=== PATIENT | male | born 1960 ===

== ENCOUNTER 2020-01-03 10:13 | Outpatient (RCR) | payer OTHER ==
[~2020-01-03 10:13] MED LIST: LIDOCAINE VISC 2% SOLN 15 ML UDC ONE
[2020-01-03] MEDS ORDERED: COLLAGENASE OINTMENT 30 GM TUBE ONE (16:45)
== END 2020-01-11 ==
LOC: WCC 10:13
PROVIDERS: ATTEND Internal Medicine Infectious Disease
DX: E11.622 Type 2 diabetes mellitus with other skin ulcer (principal); L89.892 Pressure ulcer of other site, stage 2; S81.802A Unspecified open wound, left lower leg, initial encounter; R60.0 Localized edema; I73.89 Other specified peripheral vascular diseases; I10 Essential (primary) hypertension; G99.0 Autonomic neuropathy in diseases classified elsewhere; M13.80 Other specified arthritis, unspecified site; M48.00 Spinal stenosis, site unspecified; E66.3 Overweight; W45.0XXA Nail entering through skin, initial encounter; Z74.01 Bed confinement status
CPT/HCPCS: 36415; 82948

== ENCOUNTER → 2020-01-06 | Outpatient (CLI) | payer OTHER | LOC: CARD 14:42 | PROVIDERS: ATTEND Internal Medicine Infectious Disease | DX: I73.89 Other specified peripheral vascular diseases (principal) | CPT/HCPCS: 93926; 93971 ==

== ENCOUNTER 2020-02-07 14:15 | Outpatient (RCR) | payer OTHER ==
[2020-02-07] MEDS ORDERED: COLLAGENASE OINTMENT 30 GM TUBE ONE (15:01)
== END 2020-02-11 ==
LOC: WCC 14:15
PROVIDERS: ATTEND Internal Medicine Infectious Disease
DX: E11.622 Type 2 diabetes mellitus with other skin ulcer (principal); L89.892 Pressure ulcer of other site, stage 2; S81.802A Unspecified open wound, left lower leg, initial encounter; I73.89 Other specified peripheral vascular diseases; R60.0 Localized edema; I10 Essential (primary) hypertension; E66.3 Overweight; G99.0 Autonomic neuropathy in diseases classified elsewhere; H54.8 Legal blindness, as defined in USA; M13.80 Other specified arthritis, unspecified site; M48.00 Spinal stenosis, site unspecified; W45.0XXA Nail entering through skin, initial encounter; Z74.01 Bed confinement status

== ENCOUNTER 2020-03-06 13:55 | Outpatient (RCR) | payer OTHER ==
[~2020-03-06 13:55] MED LIST changes: +COLLAGENASE OINTMENT 30 GM TUBE ONE; -LIDOCAINE VISC 2% SOLN 15 ML UDC ONE
[2020-03-06] MEDS ORDERED: COLLAGENASE OINTMENT 30 GM TUBE ONE (19:38)
== END 2020-03-12 ==
LOC: WCC 13:55
PROVIDERS: ATTEND Internal Medicine Infectious Disease
DX: E11.622 Type 2 diabetes mellitus with other skin ulcer (principal); L89.892 Pressure ulcer of other site, stage 2; S81.802A Unspecified open wound, left lower leg, initial encounter; R60.0 Localized edema; I73.89 Other specified peripheral vascular diseases; H54.8 Legal blindness, as defined in USA; I10 Essential (primary) hypertension; G99.0 Autonomic neuropathy in diseases classified elsewhere; M48.00 Spinal stenosis, site unspecified; M13.80 Other specified arthritis, unspecified site; E66.3 Overweight; W45.0XXA Nail entering through skin, initial encounter; Z74.01 Bed confinement status
CPT/HCPCS: 36415; 82948

== ENCOUNTER 2020-04-03 03:00 | Outpatient (RCR) | payer OTHER | END 2020-04-12 | LOC: WCC 03:00 | PROVIDERS: ATTEND Internal Medicine Infectious Disease | DX: E11.622 Type 2 diabetes mellitus with other skin ulcer (principal); L89.892 Pressure ulcer of other site, stage 2; S81.802A Unspecified open wound, left lower leg, initial encounter; R60.0 Localized edema; I73.89 Other specified peripheral vascular diseases; H54.8 Legal blindness, as defined in USA; G99.0 Autonomic neuropathy in diseases classified elsewhere; I10 Essential (primary) hypertension; M13.80 Other specified arthritis, unspecified site; E66.3 Overweight; M48.00 Spinal stenosis, site unspecified; W45.0XXA Nail entering through skin, initial encounter; Z74.01 Bed confinement status ==

== ENCOUNTER 2020-04-24 11:21 | Outpatient (RCR) | payer OTHER | END 2020-05-12 | LOC: WCC 11:21 | PROVIDERS: ATTEND Internal Medicine Infectious Disease | DX: L89.892 Pressure ulcer of other site, stage 2 (principal); E11.622 Type 2 diabetes mellitus with other skin ulcer; S81.802A Unspecified open wound, left lower leg, initial encounter; R60.0 Localized edema; I73.89 Other specified peripheral vascular diseases; G99.0 Autonomic neuropathy in diseases classified elsewhere; I10 Essential (primary) hypertension; H54.8 Legal blindness, as defined in USA; M13.80 Other specified arthritis, unspecified site; M48.00 Spinal stenosis, site unspecified; E66.3 Overweight; W45.0XXA Nail entering through skin, initial encounter; Z74.01 Bed confinement status ==

== ENCOUNTER 2020-05-15 10:47 | Outpatient (RCR) | payer OTHER ==
[2020-05-15] MEDS ORDERED: COLLAGENASE OINTMENT 30 GM TUBE ONE (15:24)
== END 2020-06-12 ==
LOC: WCC 10:47
PROVIDERS: ATTEND Internal Medicine Infectious Disease
DX: E11.622 Type 2 diabetes mellitus with other skin ulcer (principal); S81.802A Unspecified open wound, left lower leg, initial encounter; R60.0 Localized edema; I73.89 Other specified peripheral vascular diseases; E66.3 Overweight; G99.0 Autonomic neuropathy in diseases classified elsewhere; H54.8 Legal blindness, as defined in USA; I10 Essential (primary) hypertension; M13.80 Other specified arthritis, unspecified site; M48.00 Spinal stenosis, site unspecified; W45.0XXA Nail entering through skin, initial encounter; Z74.01 Bed confinement status

== ENCOUNTER 2020-07-17 12:17 | Outpatient (RCR) | payer OTHER | END 2020-08-12 | LOC: WCC 12:17 | PROVIDERS: ATTEND Internal Medicine Infectious Disease | DX: E11.622 Type 2 diabetes mellitus with other skin ulcer (principal); S81.802A Unspecified open wound, left lower leg, initial encounter; S91.309A Unspecified open wound, unspecified foot, initial encounter; R60.0 Localized edema; I73.89 Other specified peripheral vascular diseases; G99.0 Autonomic neuropathy in diseases classified elsewhere; G54.8 Other nerve root and plexus disorders; I10 Essential (primary) hypertension; M48.00 Spinal stenosis, site unspecified; M13.80 Other specified arthritis, unspecified site; E66.3 Overweight; W45.0XXA Nail entering through skin, initial encounter; Z74.01 Bed confinement status ==